=== PATIENT | male | born 1965 | race Caucasian/White ===

== ENCOUNTER → 2019-04-01 | Outpatient (CLI) | payer BC ==
[~2019-04-01] MED LIST: ACYCLOVIR 400400 MG PO; ADULT LOW DOSE81 MG; ASPIR 8181 MG PO; ATORVASTATIN CA40 MG PO; CIPROFLOXIN HC2.5 M1 OPHTHALMIC; COREG; COREG25 MG PO; COREG3.125 MG PO; EFFIENT PO; EFFIENT10 MG PO; EYE DROP15 ML; FLEXERIL PO; HYDROCODONE-AP1 EAC6 PO; LEXAPRO 10 MG T10 M1 PO; LEXAPRO 10 MG T10 M2; LIPITOR 20 MG T20 M1 PO; LISINOPRIL2.5 MG PO; LOPERAMIDE 2 MG2 M1 PO; NORVASC10 MG PO; NORVASC2.5 MG PO; PEPTO-BISMOL1 TAB PO; PERCOCET 5-3251 EACH PO; VIIBRYD20 MG PO; VITAMIN B-1100 M1 PO; ZANTAC 150MG T150 MG PO; ZESTRIL
== END ==
LOC: M.RAD 15:24
DX: I11.9 Hypertensive heart disease without heart failure (principal); R05 Cough; I25.10 Atherosclerotic heart disease of native coronary artery without angina pectoris; M47.814 Spondylosis without myelopathy or radiculopathy, thoracic region

== ENCOUNTER → 2021-02-03 | Outpatient (CLI) | payer OTHER | LOC: M.ULTRA 08:00 | PROVIDERS: ATTEND Registered Nurse Diabetes Educator | DX: R16.2 Hepatomegaly with splenomegaly, not elsewhere classified (principal); N28.1 Cyst of kidney, acquired; K21.00 Gastro-esophageal reflux disease with esophagitis, without bleeding; R10.9 Unspecified abdominal pain; R19.7 Diarrhea, unspecified ==

== ENCOUNTER 2021-02-20 20:55 | Emergency (ER) | payer OTHER ==
[~2021-02-20] VITALS: Ht 175.3 cm; Wt 113.4 kg
[2021-02-20] MEDS ORDERED: ANTIDEPRESSANT (21:18)
[2021-02-20] MEDS ORDERED: CEPHALEXIN500 MG PO (22:25)
[2021-02-20] MEDS ORDERED: MUPIROCIN22 GM TOP (22:25)
[2021-02-20 22:36] VITALS: BP 128/77
== END 2021-02-20 22:37 | disposition home or self-care (01) ==
LOC: M.ERS 20:55
DX: S80.861A Insect bite (nonvenomous), right lower leg, initial encounter (principal); L03.115 Cellulitis of right lower limb; I10 Essential (primary) hypertension; Z87.891 Personal history of nicotine dependence; Z79.82 Long term (current) use of aspirin; W57.XXXA Bitten or stung by nonvenomous insect and other nonvenomous arthropods, initial encounter; Y93.89 Activity, other specified; Y92.89 Other specified places as the place of occurrence of the external cause; Y99.9 Unspecified external cause status

== ENCOUNTER → 2021-04-03 | Outpatient (CLI) | payer OTHER ==
[~2021-04-03] MED LIST changes: +ANTIDEPRESSANT; +CEPHALEXIN500 MG PO; +MUPIROCIN22 GM TOP
== END ==
LOC: M.LAB 13:11
PROVIDERS: ATTEND Specialist
DX: R97.20 Elevated prostate specific antigen [PSA] (principal)